=== PATIENT | male | born 2000 | race Hispanic/Latino ===

== ENCOUNTER 2022-04-08 09:45 | Emergency (ER) | payer SELFPAY ==
[2022-04-08] MEDS ORDERED: Ketorolac Tromethamine 30 MG/ML VIAL ONE (10:28)
[2022-04-08] MEDS ORDERED: Sodium Chloride 0.9% 100 ML ONE ×2 (10:28)
[2022-04-08] MEDS ORDERED: Ampicillin/Sulbactam 3 GM VIAL ONE (10:28)
[2022-04-08] MEDS ORDERED: Dexamethasone 10 MG/ML VIAL ONE (10:28)
[2022-04-08] MEDS ORDERED: Iopamidol 370 76% 100 ML VIAL ONE (10:29)
[2022-04-08 10:40] LABS: INR-International Normal Ratio 0.9; PTT 28.3 sec (22.9-36.1); Prothrombin Time 12.7 sec (12.0-14.7)
[2022-04-08 10:58] LABS: Anisocytosis SLIGHT = 6-15 cells (100X) (0-5/hpf); Band 4 % (5-11); Hemoglobin 17.2 g/dL (14.0-18.0); Lymphocytes 9 % (21-51); MDiff Complete? YES; Mean Corpuscular HGB CONC 32.6 g/dL (32.0-36.0); Mean Corpuscular Hemoglobin 29.8 pg (27.0-31.0); Mean Corpuscular Volume 91.2 fl (78.0-98.0); Mean Platelet Volume 8.5 fL (7.4-10.4); Monocytes 3 % (0-10); Neutrophil 81 % (42-75); Platelet Count 366 10x3/uL (130-400); Platelet Morphology Comment Appears Adequate; RBC Distribution Width 12.7 % (11.5-14.5); Reactive Lymphocytes 3 % (0-10); Red Blood Cell (RBC) Count 5.78 mill/uL (4.70-6.10); White Blood Cell (WBC) Count 20.4 10x3/uL (4.8-10.8)
[2022-04-08 11:07] LABS: Anion Gap 12 mmol/L (10-20); BUN (Urea Nitrogen) 15 mg/dL (8.9-20.6); Calc. Creatinine Clearance 0 mL/min (70-130); Calcium 9.2 mg/dL (7.8-10.44); Carbon Dioxide 29 mmol/L (22-29); Chloride 102 mmol/L (98-107); Estimated GFR 125; Glucose 84 mg/dL (70-105); Potassium 3.9 mmol/L (3.5-5.1); Sodium 139 mmol/L (136-145)
== END 2022-04-08 13:19 | disposition short-term general hospital (02) ==
LOC: MADERS 09:45
DX: J36 Peritonsillar abscess (principal); F17.220 Nicotine dependence, chewing tobacco, uncomplicated
CPT/HCPCS: 70491; 80048; 85025; 85610; 85730; 96365; 96375; J0295; J1100; J1885; J3490; Q9967